=== PATIENT | female | born 1995 | race Two or more races ===

== ENCOUNTER → 2019-02-17 | Outpatient (CLI) | payer BC ==
[2019-02-17 10:33] LABS: Basophils # (auto) 0 uL; Eosinophils # (auto) 0.4 uL; Eosinophils % (auto) 5.9 % (0.0-7.0); Hemoglobin 12.7 g/dL (12.2-16.2); Lymphocytes # (auto) 2.3 uL; Monocytes # (auto) 0.6 uL; Neutrophils # (auto) 3.6 uL
[2019-02-17 10:35] LABS: Basophils % (auto) 0.4 % (0.0-2.0); Hematocrit 38.7 % (36.0-46.0); Lymphocytes % (auto) 33.7 % (10.0-50.0); Mean Corpuscular Hemoglobin 26.7 pg (28.0-32.0); Mean Corpuscular Hgb Conc. 32.9 g/dL (32.0-36.0); Mean Corpuscular Volume 81.3 fL (80.0-100.0); Monocytes % (auto) 8.1 % (0.0-12.0); Neutrophils % (auto) 51.9 % (37.0-80.0); Platelet Count (auto) 347 10^3/uL (140-450); Red Blood Cells 4.76 10^6/uL (4.0-5.20); White Blood Cell 6.8 10^3/uL (4.4-10.8)
[2019-02-17 10:36] LABS: Albumin 3.4 g/dL (3.4-5.0); Potassium 3.6 mmol/L (3.5-5.1)
[2019-02-17 10:47] LABS: Total Protein 7.7 g/dL (6.4-8.2)
[2019-02-17 11:36] LABS: BUN/Creatinine Ratio 8.3; Bilirubin, Total 0.3 mg/dL (0.2-1.0); Calcium 8.1 mg/dL (8.5-10.1)
== END | disposition home or self-care (01) ==
LOC: LAB 08:37
PROVIDERS: ATTEND Physician Assistant
DX: E66.9 Obesity, unspecified (principal); R03.0 Elevated blood-pressure reading, without diagnosis of hypertension; J30.9 Allergic rhinitis, unspecified; R19.00 Intra-abdominal and pelvic swelling, mass and lump, unspecified site
CPT/HCPCS: 36415; 80053; 80061; 85025

== ENCOUNTER 2019-06-05 07:07 | Inpatient (IN) | payer BC ==
[2019-06-02 09:46] LABS: Basophils # (auto) 0.1 uL; Eosinophils # (auto) 0.1 uL; Eosinophils % (auto) 1.2 % (0.0-7.0); Hemoglobin 13.2 g/dL (12.2-16.2); Mean Corpuscular Hgb Conc. 32.7 g/dL (32.0-36.0); Monocytes # (auto) 0.4 uL
[2019-06-02 09:48] LABS: Basophils % (auto) 0.8 % (0.0-2.0); Hematocrit 40.4 % (36.0-46.0); Lymphocytes % (auto) 27.3 % (10.0-50.0); Mean Corpuscular Hemoglobin 26.6 pg (28.0-32.0); Mean Corpuscular Volume 81.2 fL (80.0-100.0); Monocytes % (auto) 5.6 % (0.0-12.0); Neutrophils # (auto) 4.9 uL; Neutrophils % (auto) 65.1 % (37.0-80.0); Platelet Count (auto) 373 10^3/uL (140-450); Red Blood Cells 4.98 10^6/uL (4.0-5.20); Red Cell Distribution Width 15.5 % (11.8-14.3); White Blood Cell 7.5 10^3/uL (4.4-10.8)
[2019-06-02 09:52] LABS: Urine Bacteria FEW /hpf (None Seen); Urine Blood Negative /uL (Negative); Urine Mucus FEW (None Seen); Urine Specific Gravity 1.025 (1.001-1.035); Urine WBC 1 /hpf (0 - 5)
[2019-06-02 10:38] LABS: INR 0.94 (0.9-1.15); Partial Thromboplastin Time 27.3 sec (23.64-32.05)
[2019-06-02 10:51] LABS: Albumin 3.4 g/dL (3.4-5.0); Calcium 8.7 mg/dL (8.5-10.1)
[2019-06-02 10:55] LABS: BUN/Creatinine Ratio 10.5; Bilirubin, Total 0.2 mg/dL (0.2-1.0)
[~2019-06-05] VITALS: Ht 165.1 cm; Wt 107.8 kg
[2019-06-05] MEDS ORDERED: CLINDAMYCIN 600MG IV 50 ML IV ONE (07:19)
[2019-06-05] MEDS ORDERED: KETOROLAC TROMETH 30 MG/ML 1ML VIAL IV ONE (09:08)
[2019-06-05] MEDS ORDERED: NEOSTIGMINE 1 MG/ML INJ (10mg/10ML VIAL) IV ONE (09:08)
[2019-06-05] MEDS ORDERED: fentaNYL CITRATE 100 MCG/2 ML VL ONE (09:08)
[2019-06-05] MEDS ORDERED: GLYCOPYRROLATE 0.2 MG/ML 1ML VIAL IV ONE (09:08)
[2019-06-05] MEDS ORDERED: MEPERIDINE HCL (25 MG/ML) 1ML VIAL ONE ×2 (09:08→10:08)
[2019-06-05] MEDS ORDERED: PHENYLEPHRINE HCL 10 MG/ML VL IV ONE (09:08)
[2019-06-05] MEDS ORDERED: MIDAZOLAM HCL 1MG/1ML-2 ML VIAL ONE (09:09)
[2019-06-05] MEDS ORDERED: DexAMETHasone SOD PHOS 10MG/1ML VIAL INJ ONE (09:21)
[2019-06-05] MEDS ORDERED: PROPOFOL 10 MG/ML 20 ML IV ONE (09:21)
[2019-06-05] MEDS ORDERED: ROCURONIUM 10MG/ML 10ML VIAL IV ONE (09:35)
[2019-06-05] MEDS ORDERED: MORPHINE SULFATE 4 MG/ML SYR/VIAL IV ONE (10:00)
[2019-06-05] MEDS ORDERED: hydrALAZINE HCL 20 MG/ML VL IV PRN (10:00)
[2019-06-05] MEDS ORDERED: MIDAZOLAM HCL 1MG/1ML-2 ML VIAL IV PRN (10:00)
[2019-06-05] MEDS ORDERED: ePHEDrine SULFATE 50 MG/ML AMP IV PRN (10:00)
[2019-06-05] MEDS ORDERED: LABETALOL HCL 5 MG/ML 4ML SYRINGE IV PRN (10:00)
[2019-06-05] MEDS ORDERED: METOCLOPRAMIDE HCL 5MG/ml INJ 2ml VIAL IV ONE (10:00)
[2019-06-05] MEDS ORDERED: KETOROLAC TROMETH 15 mg/ml 1ML VL IV ONE (10:00)
[2019-06-05] MEDS ORDERED: ONDANSETRON HCL 4 MG/2 ML VIAL IV ONE (10:00)
[2019-06-05] MEDS ORDERED: ONDANSETRON HCL 4 MG/2 ML VIAL IV PRN (11:00)
[2019-06-05] MEDS: HYDROmorphone HCL 2 MG/ML VL IV PRN ×4 (11:27→23:21)
[2019-06-05] MEDS ORDERED: NITROGLYCERIN 0.4 MG SL TAB SL PRN (11:45)
[2019-06-05] MEDS ORDERED: MORPHINE SULF INJ 2 MG/ML SYRINGE 1ML IV PRN (11:45)
[2019-06-05] MEDS ORDERED: ACETAMINOPHEN IV 1000 MG/100ML (10MG/ML) IV ONE (11:45)
[2019-06-05 11:58] VITALS: BP 123/78
--- NOTE | 2019-06-05 12:00 | NUR ---
PATIENT RESTING IN BED. A&OX4. RESTING COMFORTABLY. RESPIRATIONS EVEN AND UNLABORED. NO COMPLAINTS OF PAIN. DRESSING TO MEDIAL ABDOMEN DRY AND INTACT. ABDOMINAL BINDER IN PLACE. RICHARD HUNG LOWER THAN BLADDER, DRAINING CLEAR URINE. PATIENT GIVEN INCENTIVE SPIROMETER AND EDUCATED ON PROPER USE AND REASON FOR USE. ABLE TO RETURN DEMONSTRATION. PATIENT UPDATED ON POC. ALL QUESTIONS ANSWERED. BED IN LOWEST LOCKED POSITION. SIDE RAILS UP X2. CALL LIGHT WITHIN REACH.
[2019-06-05 12:42] VITALS: BP 123/78
[2019-06-05] MEDS: LACTATED RINGER'S 1,000 ML IV SCH ×3 (14:39→21:40)
[2019-06-05 16:45] VITALS: BP 132/78
[2019-06-05] MEDS: CLINDAMYCIN 900MG IV 50 ML IV SCH ×2 (18:15→21:40)
[2019-06-05] MEDS: ACETAMINOPHEN 500 MG TAB PO PRN (19:41)
[2019-06-05 20:19] LABS: Mean Corpuscular Hgb Conc. 32.6 g/dL (32.0-36.0); White Blood Cell 15.8 10^3/uL (4.4-10.8)
[2019-06-05 20:54] VITALS: BP 142/83
--- NOTE | 2019-06-05 20:55 | NUR ---
SPOKE WITH OVER THE PHONE, INFORMED MD OF THE LATEST VITAL SIGNS, RICHARD CATHETER TO STAY UNTIL MORNING, WILL WAIT FOR DR. MELENDEZ TO ROUND IN THE MORNING. ENCOURAGE TO USE INCENTIVE SPIROMETER AND REDUCE IVF RATE TO 125ML/HR AFTER THE CURRENT BAG. PATIENT AND FAMILY MADE AWARE OF PLAN OF CARE.
[2019-06-05 21:01] LABS: Basophils # (auto) 0 uL; Basophils % (auto) 0.1 % (0.0-2.0); Eosinophils # (auto) 0 uL; Hematocrit 39.2 % (36.0-46.0); Hemoglobin 12.8 g/dL (12.2-16.2); Lymphocytes # (auto) 1.1 uL; Lymphocytes % (auto) 6.9 % (10.0-50.0); Mean Corpuscular Hemoglobin 26.3 pg (28.0-32.0); Mean Corpuscular Volume 80.8 fL (80.0-100.0); Monocytes # (auto) 0.4 uL; Monocytes % (auto) 2.4 % (0.0-12.0); Neutrophils # (auto) 14.3 uL; Neutrophils % (auto) 90.6 % (37.0-80.0); Platelet Count (auto) 381 10^3/uL (140-450); Red Blood Cells 4.85 10^6/uL (4.0-5.20)
[2019-06-05] MEDS ORDERED: LACTATED RINGER'S 1,000 ML IV SCH (23:30)
[2019-06-06 00:14] VITALS: BP 128/79
[2019-06-06] MEDS: CLINDAMYCIN 900MG IV 50 ML IV SCH ×3 (05:22→21:52)
[2019-06-06] MEDS: HYDROmorphone HCL 2 MG/ML VL IV PRN (05:22)
[2019-06-06 05:33] LABS: Basophils # (auto) 0 uL; Eosinophils # (auto) 0 uL; Hemoglobin 11.7 g/dL (12.2-16.2); Lymphocytes # (auto) 1.6 uL; Mean Corpuscular Hemoglobin 26.2 pg (28.0-32.0); Mean Corpuscular Hgb Conc. 32.7 g/dL (32.0-36.0); Monocytes % (auto) 7.6 % (0.0-12.0); Red Blood Cells 4.45 10^6/uL (4.0-5.20)
[2019-06-06 05:35] LABS: Basophils % (auto) 0.2 % (0.0-2.0); Hematocrit 35.7 % (36.0-46.0); Lymphocytes % (auto) 11.7 % (10.0-50.0); Mean Corpuscular Volume 80.2 fL (80.0-100.0); Neutrophils # (auto) 10.7 uL; Neutrophils % (auto) 80.5 % (37.0-80.0); Platelet Count (auto) 359 10^3/uL (140-450); Red Cell Distribution Width 14.8 % (11.8-14.3); White Blood Cell 13.3 10^3/uL (4.4-10.8)
[2019-06-06 05:58] VITALS: BP 130/70
--- NOTE | 2019-06-06 07:25 | NUR ---
Opening Shift Note Assumed care of patient, awake and alert. No S/S of distress or SOB. Pt denies any pain at this time. Bed in lowest and locked position with side rails up x2 and call light within reach. Instructed on POC and to call for assist PRN, will continue to monitor for changes Q1hr and PRN.
--- NOTE | 2019-06-06 08:00 | NUR ---
RECEIVED CALL FROM DR. MELENDEZ. NEW ORDERS RECEIVED, READ BACK AND VERIFIED.
[2019-06-06] MEDS ORDERED: SIMETHICONE 80 MG CHEWABLE TABLET PO PRN (08:15)
[2019-06-06] MEDS ORDERED: BISACODYL 10 MG RECT SUPP PR PRN (08:15)
[2019-06-06 09:00] VITALS: BP 121/74
--- NOTE | 2019-06-06 09:00 | NUR ---
DR. MELENDEZ AT PT BEDSIDE DISCUSSING POC WITH PT.
--- NOTE | 2019-06-06 09:00 | NUR ---
Grigsby catheter dc'd Order to discontinue grigsby catheter. Grigsby dc'd with clean technique following deflation of balloon With 300 ml or urine. Patient tolerated well with no complaints of pain. Continue care.
[2019-06-06] MEDS: DOCUSATE SOD 100 MG CAP PO SCH ×2 (11:20→21:52)
[2019-06-06] MEDS: HYDROcodone-ACET 10/325MG TAB PO PRN ×2 (11:20→17:26)
[2019-06-06] MEDS: LACTATED RINGER'S 1,000 ML IV SCH (11:20)
[2019-06-06 17:00] VITALS: BP 106/54
--- NOTE | 2019-06-06 17:30 | NUR ---
RECEIVED CALL FROM DR MELENDEZ. NEW ORDER RECEIVED, READ BACK AND VERIFIED.
--- NOTE | 2019-06-06 19:20 | NUR ---
Opening Shift Note Report received from day shift RN. Assumed care of patient. Patient sitting in a chair awake and alert x4 with family at bedside. No S/S of distress or SOB noted. Patient complains of pain 6/10 to her abdomen. Will medicate patient as ordered. Bed left in the lowest position, locked, side rails up x2, and call light within reach. Instructed on POC and to call for assist PRN, will continue to monitor for changes Q1hr and PRN.
--- NOTE | 2019-06-06 20:10 | NUR ---
IV removal IV to right hand infiltrated and painful. DC'd with clean sterile technique, catheter fully intact. Pressure dressing applied to site. Patient tolerated well.
[2019-06-06 22:33] VITALS: BP 104/55
[2019-06-07] MEDS: HYDROmorphone HCL 2 MG/ML VL IV PRN (00:29)
--- NOTE | 2019-06-07 01:00 | NUR ---
Patient's temperature 100.7, initiated cooling measures. Will reassess and continue to monitor.
[2019-06-07] MEDS: ACETAMINOPHEN 500 MG TAB PO PRN (01:43)
[2019-06-07] MEDS: LACTATED RINGER'S 1,000 ML IV SCH ×2 (01:44→10:46)
--- NOTE | 2019-06-07 02:00 | NUR ---
Patient's temp reassessed, 99.8. Will continue to monitor.
--- NOTE | 2019-06-07 05:00 | NUR ---
Patient's O2 saturation levels were fluctuating in the 88-90%, patient placed on 4L NC. Patient denies dizziness, chest pain, N&V. Reassessed O2 levels: 94%
[2019-06-07] MEDS: HYDROcodone-ACET 10/325MG TAB PO PRN ×2 (05:06→11:54)
[2019-06-07] MEDS: CLINDAMYCIN 900MG IV 50 ML IV SCH ×2 (05:42→14:34)
[2019-06-07 05:44] VITALS: BP 100/50
--- NOTE | 2019-06-07 06:30 | NUR ---
IV removal IV to left forearm infiltrated and DC'd with clean sterile technique, catheter fully intact. Pressure dressing applied to site. Patient tolerated well.
--- NOTE | 2019-06-07 06:35 | NUR ---
IV insertion IV access obtained, via clean sterile technique by inserting 22 gauge catheter at right forearm after 1 attempt. IV secured properly. No trauma to site. Patient tolerated well.
--- NOTE | 2019-06-07 08:20 | NUR ---
DR. MELENDEZ AT PT BEDSIDE DISCUSSING POC WITH PT. NEW ORDERS RECEIVED READ BACK AND VERIFIED.
[2019-06-07 09:06] VITALS: BP 104/59
[2019-06-07] MEDS: DOCUSATE SOD 100 MG CAP PO SCH (10:45)
[2019-06-07 13:00] VITALS: BP 118/78
[2019-06-07 16:20] VITALS: BP 118/78
--- NOTE | 2019-06-07 16:30 | NUR ---
PRIOR TO DISCHARGE PT TEMPERATURE WAS 101F. PT STATES THAT SHE DRANK HOT FLUIDS PRIOR TO HAVING HER TEMPERATURE TAKEN. TEMPERATURE WAS REASSESSED 30 MIN LATER AT 98.5F. WILL NOTIFY
--- NOTE | 2019-06-07 16:50 | NUR ---
CALLED AND SPOKE WITH DR. MELENDEZ. NEW ORDERS RECEIVED, READ BACK AND VERIFIED.
[2019-06-07 17:00] VITALS: BP 112/64
--- NOTE | 2019-06-07 17:26 | NUR ---
PRESCRIPTION CALLED INTO [facility] IN [place]. SPOKE TO ADAMA.
--- NOTE | 2019-06-07 17:40 | NUR ---
Discharge instructions given as ordered. Encourage to follow up with PMD as instructed. All questions and concerns addressed. Patient verbalized understanding. Medication reconciliation form completed and copy given to patient. No Home medications held in Pharmacy. No needed vaccines. IV removed with catheter intact, pressure dressing applied.
--- NOTE | 2019-06-07 17:46 | NUR ---
Patient refused wheel chair and walked off unit with all personal belongings family member. No distress noted at time of departure.
== END 2019-06-07 17:46 | disposition home or self-care (01) | DRG 743 ==
LOC: SUR 07:07 → CENTRAL 12:18
PROVIDERS: ADMIT Obstetrics & Gynecology; ATTEND Obstetrics & Gynecology
PROC: 0UT50ZZ Resection of Right Fallopian Tube, Open Approach (ICD-10-PCS; principal; 2019-06-05 09:15)
PROC: 0UT00ZZ Resection of Right Ovary, Open Approach (ICD-10-PCS; 2019-06-05 09:15)
DX: D27.0 Benign neoplasm of right ovary (principal); N85.8 Other specified noninflammatory disorders of uterus
CPT/HCPCS: 36415; 80053; 81001; 84702; 85025; 85610; 85730; 86850; 86900; 86901; G0378; J1100; J1885; J2250; J2704; J3490

== ENCOUNTER → 2019-09-28 | Outpatient (CLI) | payer BC | END | disposition home or self-care (01) | LOC: LAB 15:41 | PROVIDERS: ATTEND Physician Assistant | DX: R10.2 Pelvic and perineal pain (principal) | CPT/HCPCS: 36415; 82565; 84520 ==

== ENCOUNTER → 2019-10-01 | Outpatient (CLI) | payer BC ==
[~2019-10-01] MED LIST: GADOTERIDOL 279.3mg/mL 20ml Vial IV ONE; IOHEXOL 300 MG/ML 100ML BOTTLE IJ ONE; LIDOCAINE 2%HCL (LOCAL ANESTH.) INJ 20ML MDV ONE
== END | disposition home or self-care (01) ==
LOC: XY 09:10
PROVIDERS: ATTEND Physician Assistant
DX: M25.552 Pain in left hip (principal); M25.551 Pain in right hip
CPT/HCPCS: 27093; A9579; Q9967; 73501; 77002

== ENCOUNTER → 2020-09-08 | Outpatient (CLI) | payer BC ==
[2020-09-08 07:50] LABS: Basophils # (auto) 0.1 10 ^3/uL (0-0.2); Basophils % (auto) 0.7 % (0.0-2.0); Eosinophils # (auto) 0.1 10 ^3/uL (0-0.8); Eosinophils % (auto) 1.5 % (0.0-7.0); Hematocrit 39.4 % (36.0-46.0); Hemoglobin 13.3 g/dL (12.2-16.2); Lymphocytes # (auto) 2.5 10 ^3/uL (0.4-5.4); Lymphocytes % (auto) 29.5 % (10.0-50.0); Mean Corpuscular Hgb Conc. 33.7 g/dL (32.0-36.0); Mean Corpuscular Volume 86.1 fL (80.0-100.0); Monocytes # (auto) 0.6 10 ^3/uL (0-1.3); Monocytes % (auto) 7.1 % (0.0-12.0); Neutrophils # (auto) 5.2 10 ^3/uL (1.6-8.6); Neutrophils % (auto) 61.2 % (37.0-80.0); Nucleated Red Blood Cells % 0.1 %; Platelet Count (auto) 349 10^3/uL (140-450); Red Blood Cells 4.57 10^6/uL (4.0-5.20); Red Cell Distribution Width 14.5 % (11.8-14.3); White Blood Cell 8.5 10^3/uL (4.4-10.8)
[2020-09-08 08:20] LABS: Albumin 3.2 g/dL (3.4-5.0); Calcium 8.7 mg/dL (8.5-10.1); Potassium 3.6 mmol/L (3.5-5.1)
[2020-09-08 08:26] LABS: BUN/Creatinine Ratio 11.3; Bilirubin, Total 0.4 mg/dL (0.2-1.0); Total Protein 7.5 g/dL (6.4-8.2)
== END | disposition home or self-care (01) ==
LOC: LAB 07:29
PROVIDERS: ATTEND Physician Assistant
DX: N92.6 Irregular menstruation, unspecified (principal); E66.9 Obesity, unspecified; R03.0 Elevated blood-pressure reading, without diagnosis of hypertension; R10.2 Pelvic and perineal pain; M54.10 Radiculopathy, site unspecified
CPT/HCPCS: 36415; 80053; 80061; 85025

== ENCOUNTER → 2020-09-27 | Outpatient (CLI) | payer BC ==
[2020-09-27 10:50] LABS: Basophils # (auto) 0 10 ^3/uL (0-0.2); Basophils % (auto) 0.6 % (0.0-2.0); Eosinophils # (auto) 0 10 ^3/uL (0-0.8); Eosinophils % (auto) 0.4 % (0.0-7.0); Hematocrit 39.1 % (36.0-46.0); Hemoglobin 13.2 g/dL (12.2-16.2); Lymphocytes # (auto) 1.8 10 ^3/uL (0.4-5.4); Lymphocytes % (auto) 24.2 % (10.0-50.0); Mean Corpuscular Hemoglobin 28.7 pg (28.0-32.0); Mean Corpuscular Hgb Conc. 33.6 g/dL (32.0-36.0); Mean Corpuscular Volume 85.4 fL (80.0-100.0); Monocytes # (auto) 0.4 10 ^3/uL (0-1.3); Monocytes % (auto) 5.2 % (0.0-12.0); Neutrophils # (auto) 5.2 10 ^3/uL (1.6-8.6); Neutrophils % (auto) 69.6 % (37.0-80.0); Platelet Count (auto) 359 10^3/uL (140-450); Red Blood Cells 4.58 10^6/uL (4.0-5.20); Red Cell Distribution Width 13.5 % (11.8-14.3); White Blood Cell 7.4 10^3/uL (4.4-10.8)
[2020-09-27 12:31] LABS: Leuteinizing Hormone 8.8 IU/L
[2020-09-27 12:32] LABS: Follicle Stimulating Hormone 4.99 IU/L (SEE BELOW)
== END | disposition home or self-care (01) ==
LOC: LAB 10:32
PROVIDERS: ATTEND Obstetrics & Gynecology
DX: Z00.00 Encounter for general adult medical examination without abnormal findings (principal); N95.1 Menopausal and female climacteric states
CPT/HCPCS: 36415; 82672; 83001; 83002; 84403; 84478; 85025

== ENCOUNTER → 2021-11-22 | Outpatient (CLI) | payer BC | END | disposition home or self-care (01) | LOC: LAB 08:22 | PROVIDERS: ATTEND Obstetrics & Gynecology | DX: R79.89 Other specified abnormal findings of blood chemistry (principal) | CPT/HCPCS: 84146 ==

== ENCOUNTER → 2022-01-25 | Outpatient (CLI) | payer BC | END | disposition home or self-care (01) | LOC: LAB 08:21 | PROVIDERS: ATTEND Obstetrics & Gynecology | DX: R10.2 Pelvic and perineal pain (principal) | CPT/HCPCS: 36415; 81025; 84702 ==

== ENCOUNTER → 2022-03-06 | Outpatient (CLI) | payer BC | END | disposition home or self-care (01) | LOC: LAB 10:33 | PROVIDERS: ATTEND Student in an Organized Health Care Education/Training Program | DX: Z11.1 Encounter for screening for respiratory tuberculosis (principal); Z23 Encounter for immunization | CPT/HCPCS: 36415; 86706; 86735; 86765; 86787 ==

== ENCOUNTER 2024-06-27 16:21 | Inpatient (IN) | payer BC, MEDICAID ==
[~2024-06-27] VITALS: Ht 165.1 cm; Wt 109.2 kg
[2024-06-27] MEDS: LIDOCAINE VISCOUS 2% 15ML UD PO ONE (17:15)
[2024-06-27] MEDS: KETOROLAC TROMETH 60MG/2ML VIAL IM ONE (17:15)
[2024-06-27] MEDS: DONNATAL 5ml ORAL Elix (BELLADONNA ALK-PHENOBARB) PO ONE (17:15)
[2024-06-27] MEDS: MAALOX PLUS or MAALOX 30 ML PO ONE (17:15)
[2024-06-27 17:20] LABS: Basophils # (auto) 0.1 10 ^3/uL (0-0.2); Eosinophils # (auto) 0.1 10 ^3/uL (0-0.8); Eosinophils % (auto) 0.4 % (0.0-7.0); Hemoglobin 12.5 g/dL (12.2-16.2); Monocytes # (auto) 0.7 10 ^3/uL (0-1.3)
[2024-06-27 17:21] LABS: Basophils % (auto) 0.6 % (0.0-2.0); Hematocrit 38.2 % (36.0-46.0); Lymphocytes # (auto) 2.3 10 ^3/uL (0.4-5.4); Lymphocytes % (auto) 16.6 % (10.0-50.0); Mean Corpuscular Hemoglobin 26.9 pg (28.0-32.0); Mean Corpuscular Hgb Conc. 32.9 g/dL (32.0-36.0); Mean Corpuscular Volume 81.9 fL (80.0-100.0); Monocytes % (auto) 4.8 % (0.0-12.0); Neutrophils # (auto) 10.9 10 ^3/uL (1.6-8.6); Neutrophils % (auto) 77.6 % (37.0-80.0); Platelet Count (auto) 442 10^3/uL (140-450); Red Blood Cells 4.66 10^6/uL (4.0-5.20); Red Cell Distribution Width 14.2 % (11.8-14.3)
[2024-06-27 17:36] LABS: Urine Bacteria FEW /hpf (None Seen); Urine Blood Negative /uL (Negative); Urine Clarity Clear (Clear); Urine Color Light-Yellow (Yellow); Urine Mucus FEW (None Seen); Urine Protein, UAD TRACE (Negative); Urine Specific Gravity 1.024 (1.001-1.035); Urine Urobilinogen Normal (Negative); Urine WBC 1 /hpf (0 - 5)
[2024-06-27 17:45] LABS: Alanine Aminotransferase 27 U/L (7-40); Albumin 4.5 g/dL (3.2-4.8); Alkaline Phosphatase 94 U/L (46-116); Anion Gap 4 (5-15); Aspartate Aminotransferase 13 U/L (13-40); BUN/Creatinine Ratio 5.6 (10.0-20.0); Bilirubin, Total 0.3 mg/dL (0.2-1.0); Blood Urea Nitrogen 5 mg/dL (9-23); Calcium 9.3 mg/dL (8.7-10.4); Carbon Dioxide 29 mmol/L (20-30); Chloride 107 mmol/L (98-107); Glucose 121 mg/dL (74-106); Lipase 57 U/L (12-53); Potassium 3.6 mmol/L (3.5-5.1); Sodium 140 mmol/L (136-145); Total Protein 7.7 g/dL (5.7-8.2)
[2024-06-27 17:51] VITALS: PULSE 81; RESP 18; O2SAT 99
[2024-06-27] MEDS: HYDROmorphone HCL 2 MG/ML VL/or syr IM ONE (19:50)
[2024-06-27] MEDS: ONDANSETRON ODT 4 MG TAB PO ONE (20:00)
[2024-06-27 21:30] LABS: INR 1.06 (0.9-1.15); Partial Thromboplastin Time 26.1 SEC (24.5-34.5); Prothrombin Time 11.2 sec (9.3-11.8)
[2024-06-27] MEDS: D5W/SOD CHL 0.45%/KCL 20MEQ 1,000 ML IV ONE (21:34)
[2024-06-27] MEDS ORDERED: ONDANSETRON HCL 4 MG/2 ML VIAL IV PRN (21:45)
[2024-06-27] MEDS ORDERED: MORPHINE SULFATE INJ 2 MG/ml SYRG IV PRN (22:30)
[2024-06-27] MEDS ORDERED: NITROGLYCERIN 0.4 MG SL TAB SL PRN (22:30)
[2024-06-27 23:14] VITALS: PULSE 95; RESP 20; O2SAT 99
[2024-06-27 23:15] VITALS: BP 137/92; PULSE 95; RESP 18; TEMP 97.2; O2SAT 99
[2024-06-27] MEDS ORDERED: METF-1145 PO (23:21)
[2024-06-28] VITALS (8 sets, daily range): BP systolic 105–143; BP diastolic 58–93; PULSE 82–100; RESP 16–20; TEMP 97.4–99.1; O2SAT 91–96
[2024-06-28] MEDS ORDERED: DEXTROSE (50%) 50ML SYRG IV PRN (00:30)
[2024-06-28] MEDS: InsuLIN REG 1unit/0.01ml Soln (100units/ml) SC SCH (05:39)
[2024-06-28] MEDS: ACCU-CHEK COMFORT CURVE STRIP VI SCH (05:40)
[2024-06-28 07:09] LABS: Basophils # (auto) 0 10 ^3/uL (0-0.2); Basophils % (auto) 0.4 % (0.0-2.0); Eosinophils # (auto) 0.1 10 ^3/uL (0-0.8); Eosinophils % (auto) 0.4 % (0.0-7.0); Hematocrit 37.9 % (36.0-46.0); Hemoglobin 12.6 g/dL (12.2-16.2); Lymphocytes # (auto) 3.2 10 ^3/uL (0.4-5.4); Lymphocytes % (auto) 26.5 % (10.0-50.0); Mean Corpuscular Hemoglobin 27.2 pg (28.0-32.0); Mean Corpuscular Hgb Conc. 33.4 g/dL (32.0-36.0); Mean Corpuscular Volume 81.5 fL (80.0-100.0); Monocytes # (auto) 0.8 10 ^3/uL (0-1.3); Monocytes % (auto) 6.7 % (0.0-12.0); Neutrophils # (auto) 8.1 10 ^3/uL (1.6-8.6); Nucleated Red Blood Cells % 0.1 %; Platelet Count (auto) 380 10^3/uL (140-450); Red Blood Cells 4.64 10^6/uL (4.0-5.20); Red Cell Distribution Width 14.1 % (11.8-14.3); White Blood Cell 12.2 10^3/uL (4.4-10.8)
[2024-06-28] MEDS: levoFLOXacin 500MG 100 ML IV ONE (07:23)
[2024-06-28 07:32] LABS: Alanine Aminotransferase 24 U/L (7-40); Albumin 4.2 g/dL (3.2-4.8); Alkaline Phosphatase 95 U/L (46-116); Anion Gap 8 (5-15); Aspartate Aminotransferase 11 U/L (13-40); Blood Urea Nitrogen 6 mg/dL (9-23); Calcium 9.1 mg/dL (8.7-10.4); Carbon Dioxide 26 mmol/L (20-30); Chloride 106 mmol/L (98-107); Glucose 93 mg/dL (74-106); Potassium 3.3 mmol/L (3.5-5.1); Sodium 140 mmol/L (136-145)
[2024-06-28 07:33] LABS: Bilirubin, Total 0.4 mg/dL (0.2-1.0); Total Protein 7.4 g/dL (5.7-8.2)
[2024-06-28] MEDS: SUCCINYLCHOLINE CHLORIDE 20 MG/ML 10ML VIAL IV ONE (07:34)
[2024-06-28] MEDS ORDERED: MIDAZOLAM HCL 2MG/2ML 2ml VIAL (1mg/ml) ONE (07:41)
[2024-06-28] MEDS ORDERED: fentaNYL CITRATE 100 MCG/2 ML VL ONE (07:41)
[2024-06-28] MEDS ORDERED: MEPERIDINE HCL (25 MG/ML) 1ML VIAL ONE (07:42)
[2024-06-28 07:52] LABS: BUN/Creatinine Ratio 7.5 (10.0-20.0)
[2024-06-28] MEDS ORDERED: DexAMETHasone SOD PHOS 10MG/1ML VIAL INJ ONE (08:26)
[2024-06-28] MEDS ORDERED: PROPOFOL 10 MG/ML 20 ML IV ONE (08:26)
[2024-06-28] MEDS ORDERED: ONDANSETRON HCL 4 MG/2 ML VIAL ONE (08:27)
[2024-06-28] MEDS ORDERED: ePHEDrine SULFATE 50 MG/ML AMP IV PRN (08:30)
[2024-06-28] MEDS ORDERED: ACCU-CHEK COMFORT CURVE STRIP VI ONE (08:30)
[2024-06-28] MEDS ORDERED: MORPHINE SULFATE 4 MG/ML SYR/VIAL IV PRN (08:30)
[2024-06-28] MEDS ORDERED: ONDANSETRON HCL 4 MG/2 ML VIAL IV ONE (08:30)
[2024-06-28] MEDS ORDERED: hydrALAZINE HCL 20 MG/ML VL IV PRN (08:30)
[2024-06-28] MEDS ORDERED: HYDROmorphone HCL 2 MG/ML VL/or syr IV PRN (08:30)
[2024-06-28] MEDS ORDERED: MIDAZOLAM HCL 2MG/2ML 2ml VIAL (1mg/ml) IV PRN (08:30)
[2024-06-28] MEDS: LIDOCAINE W/ EPINEPHRINE 1% 20ML VIAL ONE (08:35)
[2024-06-28] MEDS: BUPIVACAINE HCL 0.25% P/F 10 ML VIAL ONE (08:35)
[2024-06-28] MEDS ORDERED: SUGAMMADEX 200mg/2ml Vial (100MG/ML) IV ONE (08:55)
[2024-06-28] MEDS: levoFLOXacin 500MG 100 ML IV SCH (10:23)
[2024-06-28] MEDS: HYDROcodone-ACET 5/325MG TAB PO PRN (10:33)
[2024-06-28] MEDS: metroNIDAZOLE 500MG/100ML 100 ML IV SCH (13:53)
[2024-06-28] MEDS: SODIUM CHLORIDE 0.9% 1,000 ML IV SCH (14:02)
[2024-06-28] MEDS: POTASSIUM CHLORIDE 40 MEQ in SOD CHL 0.45% 1,000 ML IV SCH (16:48)
[2024-06-28] MEDS: HYDROmorphone HCL 2 MG/ML VL/or syr IV PRN (20:15)
[2024-06-28] MEDS: metFORMIN HYDROCHLORIDE 500 MG TAB PO SCH (21:18)
[2024-06-28] MEDS ORDERED: metFORMIN HYDROCHLORIDE 500 MG TAB PO SCH (22:00)
[2024-06-29 05:00] VITALS: BP 126/78; PULSE 83; RESP 16; TEMP 97.6; O2SAT 94
[2024-06-29 05:44] LABS: Basophils # (auto) 0 10 ^3/uL (0-0.2); Basophils % (auto) 0.2 % (0.0-2.0); Eosinophils # (auto) 0 10 ^3/uL (0-0.8); Hematocrit 35.4 % (36.0-46.0); Hemoglobin 11.5 g/dL (12.2-16.2); Lymphocytes # (auto) 2.4 10 ^3/uL (0.4-5.4); Lymphocytes % (auto) 17.8 % (10.0-50.0); Mean Corpuscular Hgb Conc. 32.5 g/dL (32.0-36.0); Mean Corpuscular Volume 83.1 fL (80.0-100.0); Monocytes # (auto) 0.7 10 ^3/uL (0-1.3); Monocytes % (auto) 5.4 % (0.0-12.0); Neutrophils # (auto) 10.1 10 ^3/uL (1.6-8.6); Neutrophils % (auto) 76.6 % (37.0-80.0); Platelet Count (auto) 385 10^3/uL (140-450); Red Blood Cells 4.26 10^6/uL (4.0-5.20); Red Cell Distribution Width 14.1 % (11.8-14.3); White Blood Cell 13.2 10^3/uL (4.4-10.8)
[2024-06-29 06:01] LABS: Alanine Aminotransferase 36 U/L (7-40); Albumin 3.8 g/dL (3.2-4.8); Alkaline Phosphatase 86 U/L (46-116); Anion Gap 4 (5-15); Aspartate Aminotransferase 26 U/L (13-40); Bilirubin, Total 0.5 mg/dL (0.2-1.0); Calcium 9.2 mg/dL (8.7-10.4); Carbon Dioxide 26 mmol/L (20-30); Chloride 108 mmol/L (98-107); Glucose 103 mg/dL (74-106); Potassium 3.7 mmol/L (3.5-5.1); Sodium 138 mmol/L (136-145); Total Protein 6.6 g/dL (5.7-8.2)
[2024-06-29 06:25] LABS: Blood Urea Nitrogen < 5 mg/dL (9-23)
[2024-06-29 08:00] VITALS: O2SAT 95
[2024-06-29 09:00] VITALS: BP 121/58; PULSE 73; RESP 17; TEMP 98.7; O2SAT 93
[2024-06-29] MEDS: ACETAMINOPHEN 325 MG TAB PO PRN (12:20)
[2024-06-29 12:56] VITALS: BP 128/81; PULSE 80; RESP 17; TEMP 98.3; O2SAT 94
[2024-06-29] MEDS ORDERED: LEVO500T91 PO (13:08)
[2024-06-29] MEDS ORDERED: METR-344 PO (13:08)
[2024-06-29 13:34] VITALS: BP 121/58; PULSE 73; RESP 17; TEMP 36.8; O2SAT 96
== END 2024-06-29 14:15 | disposition home or self-care (01) | DRG 263 ==
LOC: ER 16:21 → EEVIPCON 16:21 → OVERFLOW 22:21 → EAST 23:16
PROVIDERS: ADMIT Internal Medicine; ATTEND Internal Medicine
PROC: 0FT44ZZ Resection of Gallbladder, Percutaneous Endoscopic Approach (ICD-10-PCS; principal; 2024-06-28 07:59)
DX: K80.00 Calculus of gallbladder with acute cholecystitis without obstruction (principal); K76.0 Fatty (change of) liver, not elsewhere classified; E11.9 Type 2 diabetes mellitus without complications; E87.6 Hypokalemia; E66.9 Obesity, unspecified; D72.829 Elevated white blood cell count, unspecified; Z79.899 Other long term (current) drug therapy; Z88.0 Allergy status to penicillin; Z68.41 Body mass index [BMI] 40.0-44.9, adult; Z90.721 Acquired absence of ovaries, unilateral
CPT/HCPCS: 36415; 76705; 80053; 81001; 82962; 83036; 83690; 84702; 85025; 85610; 85730; 86850; 86900; 86901; 96372; G0378; J0330; J1100; J1815; J1885; J1956; J2250; J2405; J2704; J3490

== ENCOUNTER → 2024-12-22 | Outpatient (CLI) | payer BC ==
[~2024-12-22] MED LIST changes: -GADOTERIDOL 279.3mg/mL 20ml Vial IV ONE; -IOHEXOL 300 MG/ML 100ML BOTTLE IJ ONE; +LEVO500T91 PO; -LIDOCAINE 2%HCL (LOCAL ANESTH.) INJ 20ML MDV ONE; +METF-1145 PO; +METR-344 PO
[2024-12-22 07:30] LABS: Eosinophils # (auto) 0.1 10 ^3/uL (0-0.8); Neutrophils # (auto) 6.2 10 ^3/uL (1.6-8.6); Red Blood Cells 4.84 10^6/uL (4.0-5.20); White Blood Cell 9.2 10^3/uL (4.4-10.8)
[2024-12-22 07:33] LABS: Basophils # (auto) 0.1 10 ^3/uL (0-0.2); Basophils % (auto) 0.6 % (0.0-2.0); Eosinophils % (auto) 0.9 % (0.0-7.0); Hematocrit 37.8 % (36.0-46.0); Hemoglobin 12.6 g/dL (12.2-16.2); Lymphocytes # (auto) 2.3 10 ^3/uL (0.4-5.4); Lymphocytes % (auto) 24.6 % (10.0-50.0); Mean Corpuscular Hemoglobin 26.1 pg (28.0-32.0); Mean Corpuscular Hgb Conc. 33.4 g/dL (32.0-36.0); Mean Corpuscular Volume 78.1 fL (80.0-100.0); Monocytes # (auto) 0.6 10 ^3/uL (0-1.3); Monocytes % (auto) 6.9 % (0.0-12.0); Nucleated Red Blood Cells % 0.1 %; Platelet Count (auto) 420 10^3/uL (140-450); Red Cell Distribution Width 15.3 % (11.8-14.3)
[2024-12-22 07:37] LABS: Alanine Aminotransferase 14 U/L (7-40); Albumin 4.6 g/dL (3.2-4.8); Alkaline Phosphatase 110 U/L (46-116); Anion Gap 9 (5-15); BUN/Creatinine Ratio 11.3 (10.0-20.0); Bilirubin, Total 0.7 mg/dL (0.2-1.0); Blood Urea Nitrogen 9 mg/dL (9-23); Calcium 9.9 mg/dL (8.7-10.4); Carbon Dioxide 26 mmol/L (20-31); Chloride 104 mmol/L (98-107); Glucose 101 mg/dL (74-106); Potassium 3.6 mmol/L (3.5-5.1); Sodium 139 mmol/L (136-145); Total Protein 7.8 g/dL (5.7-8.2)
[2024-12-22 07:43] LABS: Urine Bacteria MOD /hpf (None Seen); Urine Budding Yeast OCCASIONAL /hpf (None Seen); Urine Mucus FEW (None Seen); Urine Squamous Epithelial Cell MANY /hpf (<5); Urine WBC 25 /HPF (0-5)
[2024-12-22 07:45] LABS: Urine Clarity CLEAR (Clear); Urine Color YELLOW (Yellow)
[2024-12-22 07:46] LABS: Urine Protein, UAD 1+ (Negative); Urine Urobilinogen Normal (Negative)
[2024-12-22 07:47] LABS: Urine Blood Negative /uL (Negative)
[2024-12-22 07:53] LABS: Aspartate Aminotransferase 10 U/L (13-40)
[2024-12-23 12:39] LABS: Creatinine, Urine 292.86 mg/dL (30.0-125.0)
[2024-12-23 12:58] LABS: Triglycerides 109 mg/dL (< 150)
[2024-12-23 13:00] LABS: Cholesterol 181 mg/dL (< 200); HDL Cholesterol 41 mg/dL (40-59)
[2024-12-23 13:03] LABS: LDL Cholesterol 137 mg/dL (< 100)
== END | disposition home or self-care (01) ==
LOC: LAB 06:43
PROVIDERS: ATTEND Student in an Organized Health Care Education/Training Program
DX: I10 Essential (primary) hypertension (principal); E11.9 Type 2 diabetes mellitus without complications
CPT/HCPCS: 36415; 80053; 80061; 81001; 82043; 82306; 82570; 83036; 84443; 85025

== ENCOUNTER → 2025-01-06 | Outpatient (CLI) | payer BC ==
[2025-01-06 14:10] LABS: T3 Total 1.27 ng/mL (0.60-1.81)
[2025-01-06 14:12] LABS: Free T4 (Free Thyroxine) 0.99 ng/dL (0.89-1.76)
== END | disposition home or self-care (01) ==
LOC: LAB 12:58
PROVIDERS: ATTEND Student in an Organized Health Care Education/Training Program
DX: R79.89 Other specified abnormal findings of blood chemistry (principal)
CPT/HCPCS: 36415; 84439; 84443; 84480

== ENCOUNTER 2025-06-02 07:08 | Outpatient (CLI) | payer BC ==
[2025-06-02 07:41] LABS: Hematocrit 36.8 % (36.0-46.0); Hemoglobin 12.4 g/dL (12.2-16.2); Mean Corpuscular Hemoglobin 26.8 pg (28.0-32.0); Mean Corpuscular Volume 79.4 fL (80.0-100.0); Nucleated Red Blood Cells % 0.0 %
[2025-06-02 07:58] LABS: Alanine Aminotransferase 15 U/L (7-40); Albumin 4.4 g/dL (3.2-4.8); Alkaline Phosphatase 97 U/L (46-116); Anion Gap 9 (5-15); BUN/Creatinine Ratio 12.2 (10.0-20.0); Blood Urea Nitrogen 10 mg/dL (9-23); Calcium 9.7 mg/dL (8.7-10.4); Carbon Dioxide 27 mmol/L (20-31); Chloride 104 mmol/L (98-107); Cholesterol 189 mg/dL (< 200); Glucose 88 mg/dL (74-106); HDL Cholesterol 46 mg/dL (40-59); Potassium 3.5 mmol/L (3.5-5.1); Sodium 140 mmol/L (136-145); Total Protein 7.4 g/dL (5.7-8.2); Triglycerides 102 mg/dL (< 150)
[2025-06-02 07:59] LABS: Bilirubin, Total 0.5 mg/dL (0.2-1.0)
== END 2025-06-02 17:00 | disposition home or self-care (01) ==
LOC: LAB 07:08
PROVIDERS: ATTEND Student in an Organized Health Care Education/Training Program
DX: E11.9 Type 2 diabetes mellitus without complications (principal); E03.9 Hypothyroidism, unspecified
CPT/HCPCS: 36415; 80053; 80061; 82306; 83036; 84443; 85025

== ENCOUNTER 2025-07-29 07:58 | Outpatient (CLI) | payer BC ==
[2025-07-29 08:58] LABS: Hematocrit 38.4 % (36.0-46.0); Hemoglobin 12.9 g/dL (12.2-16.2); Mean Corpuscular Hemoglobin 26.6 pg (28.0-32.0); Mean Corpuscular Volume 79.5 fL (80.0-100.0); Nucleated Red Blood Cells % 0.1 %
[2025-07-29 09:14] LABS: Amphetamine Screen, Urine Neg (NEGATIVE); Barbiturate Scree,Urine Neg (NEGATIVE); Benzodiazephine Screen, Urine Neg (NEGATIVE); Cannabinoid Screen, Urine Neg (NEGATIVE); Cocaine Screen, Urine Neg (NEGATIVE); Opiate Scree,Urine Neg (NEGATIVE); Phencyclidine Screen, Urine Neg (NEGATIVE)
[2025-07-29 10:18] LABS: Anisocytosis Slight
[2025-07-30 15:07] LABS: Chlamydia Trachomatis, NAA Negative (Negative); Neisseria gonorrhoeae, NAA Negative (Negative)
== END 2025-07-29 17:00 | disposition home or self-care (01) ==
LOC: LAB 07:58
PROVIDERS: ATTEND Obstetrics & Gynecology
DX: Z34.80 Encounter for supervision of other normal pregnancy, unspecified trimester (principal); Z72.51 High risk heterosexual behavior; Z3A.00 Weeks of gestation of pregnancy not specified; Z79.899 Other long term (current) drug therapy
CPT/HCPCS: 36415; 80307; 83036; 84144; 84702; 85025; 86703; 86780; 86850; 86900; 86901; 87086; 87340